=== PATIENT | female | born 1980 | race Caucasian/White ===

== ENCOUNTER 2016-06-16 07:18 | Emergency (ER) | payer OTHER ==
[~2016-06-16] VITALS: Ht 162.6 cm; Wt 77.1 kg
[~2016-06-16 07:18] MED LIST: ACHD5005; ASCO500C14 PO; CEFD300C3 PO; CITA20TA4 PO; CTLP20T PO; CYANOCOBALAMIN; DCS100C PO; ESCT10T; FOLIC ACID; IBP800T PO; LEVO88TA26 PO; ORTHOTRICYCLINE; OXYC-272 PO; OXYC1TAB12 PO; PREN1TAB39 PO; PROP1TAB77; SERT50TA; VITAMIN E; [UNRECOGNIZED DRUG - OTHER] PO; percocet
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
[2016-06-16 08:48] VITALS: BP 105/64
== END 2016-06-16 08:48 | disposition home or self-care (01) ==
LOC: EDUNIT# 07:18 → ER 07:19
DX: S19.9XXA Unspecified injury of neck, initial encounter (principal); V43.52XA Car driver injured in collision with other type car in traffic accident, initial encounter; Y92.414 Local residential or business street as the place of occurrence of the external cause; Y99.8 Other external cause status
CPT/HCPCS: 70450; 72125; 99283

== ENCOUNTER → 2016-11-26 | Outpatient (CLI) | payer OTHER ==
[2016-11-26 12:31] LABS: BASOPHILS % (AUTO) 1 % (0-10); EOSINOPHILS # (AUTO) 0.1 10^3/uL (0.0-0.3); EOSINOPHILS % (AUTO) 2 % (0-10); LYMPHOCYTES # (AUTO) 2.5 X 10^3 (1.0-4.0); LYMPHOCYTES % (AUTO) 36 % (12-44); MEAN CORPUSCULAR HEMOGLOBIN 33 PG (25-34); MEAN CORPUSCULAR HGB CONC 34 G/DL (32-36); MEAN CORPUSCULAR VOLUME 96 FL (80-99); MEAN PLATELET VOLUME 10.4 FL (7.4-10.4); MONOCYTES # (AUTO) 0.5 X 10^3 (0.0-1.0); MONOCYTES % (AUTO) 7 % (0-12); NEUTROPHILS # (AUTO) 3.7 X 10^3 (1.8-7.8); NEUTROPHILS % (AUTO) 54 % (42-75); PLATELET COUNT 224 10^3/uL (130-400); RED BLOOD COUNT 4.99 10^6/uL (4.35-5.85); RED CELL DISTRIBUTION WIDTH 13.2 % (10.0-14.5); WHITE BLOOD COUNT 6.8 10^3/uL (4.3-11.0)
[2016-11-26 12:44] LABS: ALANINE AMINOTRANSFERASE 15 U/L (0-55); ALBUMIN 3.8 GM/DL (3.2-4.5); ANION GAP 7 MMOL/L (5-14); ASPARTATE AMINO TRANSFERASE 17 U/L (5-34); BILIRUBIN,TOTAL 0.5 MG/DL (0.1-1.0); BLOOD UREA NITROGEN 10 MG/DL (7-18); BUN/CREATININE RATIO 13; CALCIUM 8.6 MG/DL (8.5-10.1); CARBON DIOXIDE 25 MMOL/L (21-32); CHLORIDE 104 MMOL/L (98-107); CHOLESTEROL 264 MG/DL (< 200); CREATININE SERUM 0.75 MG/DL (0.60-1.30); DIRECT LDL 193 MG/DL (1-129); GFR ESTIMATED > 60; GLUCOSE 101 MG/DL (70-105); POTASSIUM 4.1 MMOL/L (3.6-5.0); SODIUM 136 MMOL/L (135-145); TOTAL PROTEIN 6.2 GM/DL (6.4-8.2); TRIGLYCERIDES 211 MG/DL (<150); VLDL CHOLESTEROL 42 MG/DL (5-40)
[2016-11-26 13:04] LABS: THYROID STIMULATING HORMONE 1.63 UIU/ML (0.35-4.94)
== END ==
LOC: LAB 12:21
PROVIDERS: ATTEND Family Medicine
DX: E03.9 Hypothyroidism, unspecified (principal); E78.5 Hyperlipidemia, unspecified
CPT/HCPCS: 36415; 80053; 80061; 84439; 84443; 85025

== ENCOUNTER 2017-03-03 11:13 | Outpatient (CLI) | payer OTHER | END 2017-03-03 12:00 | disposition home or self-care (01) | LOC: SLEEP 11:13 | PROVIDERS: ATTEND Family Medicine | DX: G47.33 Obstructive sleep apnea (adult) (pediatric) (principal) ==

== ENCOUNTER → 2017-07-17 | Outpatient (CLI) | payer OTHER ==
[~2017-07-17] MED LIST changes: +PHEN30CA2
[2017-07-17 08:12] LABS: ALANINE AMINOTRANSFERASE 16 U/L (0-55); ALBUMIN 3.9 GM/DL (3.2-4.5); ALKALINE PHOSPHATASE 46 U/L (40-136); BILIRUBIN,TOTAL 0.2 MG/DL (0.1-1.0); BUN/CREATININE RATIO 15; CARBON DIOXIDE 26 MMOL/L (21-32); CHLORIDE 106 MMOL/L (98-107); CHOLESTEROL 127 MG/DL (< 200); CREATININE SERUM 0.75 MG/DL (0.60-1.30); GFR ESTIMATED > 60; GLUCOSE 102 MG/DL (70-105); HDL CHOLESTEROL 41 MG/DL (40-60); POTASSIUM 4.2 MMOL/L (3.6-5.0); SODIUM 140 MMOL/L (135-145); TOTAL PROTEIN 6.2 GM/DL (6.4-8.2); TRIGLYCERIDES 89 MG/DL (<150); VLDL CHOLESTEROL 18 MG/DL (5-40)
== END ==
LOC: LAB 07:36
PROVIDERS: ATTEND Family Medicine
DX: E78.5 Hyperlipidemia, unspecified (principal)
CPT/HCPCS: 36415; 80053; 80061

== ENCOUNTER → 2017-07-30 | Outpatient (CLI) | payer OTHER ==
[2017-07-30 09:31] LABS: FREE T4 (FREE THYROXINE) 0.95 NG/DL (0.70-1.48)
== END ==
LOC: LAB 08:33
PROVIDERS: ATTEND Family Medicine
DX: E03.9 Hypothyroidism, unspecified (principal); R53.83 Other fatigue; R10.13 Epigastric pain; E88.81 Metabolic syndrome and other insulin resistance
CPT/HCPCS: 36415; 82150; 83036; 83525; 83690; 84439; 84443

== ENCOUNTER 2017-09-17 23:53 | Emergency (ER) | payer OTHER ==
[~2017-09-17] VITALS: Ht 167.6 cm; Wt 79.8 kg
[~2017-09-17 23:53] MED LIST changes: -PHEN30CA2
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
[2017-09-18] MEDS ORDERED: PHEN30CA2 (00:20)
[2017-09-18] MEDS ORDERED: IBUPROFEN TABLET 200 MG TAB PO ONE (00:45)
--- NOTE | 2017-09-18 01:15 | ED Lower Extremity ---
General Chief Complaint: Lower Extremity Stated Complaint: FALL-LEFT ANKLE INJURY Nursing Triage Note: pt presents to er with complaint of left ankle pain. states she tripped on her back steps at home. Nursing Sepsis Screen: No Definite Risk (NURY AZUL MD) History of Present Illness Date Seen by Provider: Sep 18, 2017 Time Seen by Provider: 00:31 Initial Comments This is a 37 y/o female presenting to the ED via private vehicle with chief complaint of L ankle injury that occurred at 2330 on 09/17/17. Patient states she was walking down some stairs when her foot got caught on a purse handle which caused her to fall and twist her ankle. She states she heard a crack and had immediate pain in the L ankle. She is uncertain which way her ankle turned when she fell. Patient states she was unable to bear weight on her ankle and used crutches to walk. She denies hitting her head, denies pain elsewhere. (KATHLEEN MOSQUEDA) Allergies and Home Medications Allergies Coded Allergies: No Known Allergies (Verified Allergy, Unknown, 07/25/14) erythromycin base (Unverified Allergy, Unknown, 07/25/14) Home Medications Citalopram Hydrobromide 20 Mg Tab, 30 MG PO DAILY, (Reported) Levothyroxine Sodium 88 Mcg Tablet, 88 MCG PO DAILY, (Reported) Patient Home Medication List Home Medication List Reviewed: Yes (KAHTLEEN MOSQUEDA) Constitutional: no symptoms reported Respiratory: no symptoms reported Cardiovascular: no symptoms reported Gastrointestinal: no symptoms reported Musculoskeletal: see HPI, other (L ankle pain and swelling ) (KATHLEEN MOSQUEDA) Past Zcqhkpx-Razoxk-Tesnbn Hx Patient Social History Alcohol Use: Occasionally Uses Recreational Drug Use: No Smoking Status: Current Everyday Smoker Recent Foreign Travel: No Contact w/Someone Who Travel: No Recent Infectious Disease Expo: No Recent Hopitalizations: Yes (NURY AZUL MD) Immunizations Up To Date Date of Influenza Vaccine: Jan 04, 2013 (NURY AZUL MD) Past Medical History Surgeries: Yes (r KNEE SCOPE, D&C, DERMOID TUMOR, POSTERIOR VAGINAL REPAIR AND RECONST) Gallbladder, Hysterectomy, Orthopedic Respiratory: No Cardiac: No Neurological: No Reproductive Disorders: No Female Reproductive Disorders: Denies Sexually Transmitted Disease: No HIV/AIDS: No Gastrointestinal: No Musculoskeletal: No Endocrine: Yes Hypothyroidsim Loss of Vision: Denies Hearing Impairment: Denies Cancer: No Psychosocial: No Integumentary: No Blood Disorders: No Adverse Reaction/Blood Tranf: No (NURY AZUL MD) Family Medical History Diabetes mellitus 19 MOTHER FH: Crohn's disease 19 FATHER Physical Exam Vital Signs Vital Signs - First Documented 09/18/17 00:15 Pulse 95 Resp 20 B/P (MAP) 110/68 (82) Pulse Ox 98 O2 Delivery Room Air (KATHLEEN MOSQUEDA MED STUDENT) Vital Signs Capillary Refill : Less Than 3 Seconds (NURY AZUL MD) General Appearance: WD/WN, no apparent distress Cardiovascular: normal peripheral pulses, regular rate, rhythm, no edema, no gallop, no JVD, no murmur Respiratory: chest non-tender, lungs clear, normal breath sounds, no respiratory distress, no accessory muscle use Hips: bilateral hip non-tender, bilateral hip normal inspection, bilateral hip normal range of motion, bilateral hip no evidence of injury Legs: bilateral leg non-tender, bilateral leg normal inspection, bilateral leg normal range of motion, bilateral leg no evidence of injury Knees: bilateral knee non-tender, bilateral knee normal inspection, bilateral knee normal range of motion, bilateral knee no evidence of injury Ankles: right ankle non-tender, right ankle normal inspection, right ankle normal range of motion, right ankle no evidence of injury; left ankle ecchymosis , left ankle limited range of motion (limited eversion and inversion due to swelling and pain ), left ankle pain (pain in the ankle with palpation of the medial and lateral malleoli ), left ankle soft tissue tenderness (pain in the ankle with palpation of the medial and lateral malleoli, denies pain over dorasal and plantar portions of the foot), left ankle swelling (pain in the ankle with palpation of the medial and lateral malleoli ) Feet: left foot non-tender; right foot normal inspection; left foot normal range of motion, left foot no evidence of injury, left foot ecchymosis (mild ecchymosis noted on the dorsum of the L foot ) Neurologic/Tendon: normal sensation, normal motor functions, normal tendon functions, responds to pain 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, no motor/sensory deficits, alert, normal mood/affect, oriented x 3 Skin: ecchymosis (large ecchymosis noted on the lateral and medial malleolus of the L ankle, small ecchymosis noted on the dorsal side of the L foot) ( KATHLEEN MOSQUEDA STUDENT) Progress/Results/Core Measures Results/Orders Medications Given in ED Current Medications Medications Dose Ordered Sig/Aletha Route Start Time Stop Time Status Last Admin Dose Admin Ibuprofen 600 mg ONCE ONCE PO 09/18/17 00:45 09/18/17 00:46 DC 09/18/17 00:47 600 MG (KATHLEEN MOSQUEDA) Vital Signs/I&O 09/18/17 09/18/17 00:15 01:20 Pulse 95 95 Resp 20 20 B/P (MAP) 110/68 (82) 110/68 (82) Pulse Ox 98 98 O2 Delivery Room Air (KATHLEEN MOSQUEDA) Blood Pressure Mean: 82 Progress Progress Note : Progress Note I personally interviewed, seen, and examined this patient along with MARIUSZ Domingo student. I agree with her history, exam, assessment, and plan with the following additions. Exam: Gen.: Alert, oriented, no acute distress HEENT: Normocephalic and atraumatic Extremities: Left ankle demonstrates significant edema and tenderness over the lateral malleolus. There is bruising of the area extending anterior and onto the proximal dorsal aspect of the foot. There is no point tenderness anywhere on the foot. Tenderness is isolated to the ankle. Distal sensation and capillary refill is intact. Neuro: Alert, oriented, sensation intact Skin: Ecchymosis as above X-rays were reviewed. No acute bony injuries or dislocations were identified. Ankle was wrapped in William wrap and patient was fitted with crutches. Radiologist's report was reviewed when available after patient discharge. There was some questionable widening of the ankle mortise suggestive of a more severe ligamentous injury. Patient was contacted by phone and advised to follow -up with an orthopedic provider. (NURY AZUL MD) Progress Note : Time: 10:13 Progress Note Patients x-rays are unremarkable for any acute fractures, probable sprain. Left ankle was wrapped with WILLIAM bandages, this improved patients pain. (KATHLEEN MOSQUEDA STUDENT) Diagnostic Imaging Diagonstic Imaging: Xray Plain Films/CT/US/NM/MRI: ankle Comments X rays reviewed by me: unremarkable for acute fractures or abnormalities. (KATHLEEN MOSQUEDA STUDENT) Departure Impression Primary Impression: Left ankle sprain Qualified Codes: S93.402A - Sprain of unspecified ligament of left ankle, initial encounter Disposition: HOME, SELF-CARE Condition: Improved Departure-Patient Inst. Decision time for Depature: 01:14 (NURY AZUL MD) Referrals: ENMA CHANDLER DO (PCP/Family) Primary Care Physician Patient Instructions: Ankle Sprain (DC) Add. Discharge Instructions: Rest, elevation, compressive wrapping, and icing in 20 minute intervals should help with pain and swelling. Use crutches as needed. Gradually increase level of activity as pain allows. Use a supportive lace up or Velcro brace whenever active for the next 6 weeks to avoid reinjury. Return to care if you're not improving as expected or if symptoms worsen. All discharge instructions reviewed with patient and/or family. Voiced understanding. NURY AZUL MD Sep 18, 2017 01:15 KATHLEEN MOSQUEDA Sep 18, 2017 04:10
[2017-09-18 01:20] VITALS: BP 110/68
--- NOTE | 2017-09-18 06:52 | Diagnostic Imaging Report ---
PATIENT HISTORY: Left ankle pain and swelling. TECHNIQUE: 3 views of the left ankle COMPARISON: None FINDINGS: No acute fracture or dislocation is seen in the left ankle. There is mild asymmetry at the ankle mortise with questionable widening laterally. Moderate lateral soft tissue edema is seen in the left ankle. No large ankle joint effusion is seen. IMPRESSION: No acute fracture seen in the left ankle. There is questionable widening of the ankle mortise, which could be due to ligamentous injury. Please correlate with clinical findings. Dictated by: Dictated on workstation # [id number]
== END 2017-09-18 01:21 | disposition home or self-care (01) ==
LOC: EDUNIT# 23:53 → ER 23:56
DX: S93.402A Sprain of unspecified ligament of left ankle, initial encounter (principal); E03.9 Hypothyroidism, unspecified; F17.200 Nicotine dependence, unspecified, uncomplicated; Z90.49 Acquired absence of other specified parts of digestive tract; Z90.710 Acquired absence of both cervix and uterus; Z88.1 Allergy status to other antibiotic agents; W10.9XXA Fall (on) (from) unspecified stairs and steps, initial encounter; Y92.009 Unspecified place in unspecified non-institutional (private) residence as the place of occurrence of the external cause
CPT/HCPCS: 73610

== ENCOUNTER → 2020-01-31 | Outpatient (CLI) | payer OTHER ==
[~2020-01-31] MED LIST changes: +PHEN30CA2
[2020-01-31 11:27] LABS: BASOPHILS # (AUTO) 0.1 10^3/uL (0.0-0.1); BASOPHILS % (AUTO) 1 % (0-10); EOSINOPHILS # (AUTO) 0.1 10^3/uL (0.0-0.3); EOSINOPHILS % (AUTO) 1 % (0-10); HEMATOCRIT 42 % (35-52); HEMOGLOBIN 14.1 g/dL (11.5-16.0); LYMPHOCYTES # (AUTO) 1.6 10^3/uL (1.0-4.0); LYMPHOCYTES % (AUTO) 16 % (12-44); MEAN CORPUSCULAR HEMOGLOBIN 32 pg (25-34); MEAN CORPUSCULAR HGB CONC 34 g/dL (32-36); MEAN CORPUSCULAR VOLUME 95 fL (80-99); MEAN PLATELET VOLUME 9.4 fL (9.0-12.2); MONOCYTES # (AUTO) 0.4 10^3/uL (0.0-1.0); MONOCYTES % (AUTO) 4 % (0-12); NEUTROPHILS # (AUTO) 7.9 10^3/uL (1.8-7.8); NEUTROPHILS % (AUTO) 79 % (42-75); PLATELET COUNT 300 10^3/uL (130-400); WHITE BLOOD COUNT 10.1 10^3/uL (4.3-11.0)
[2020-01-31 11:36] LABS: ERYTHROCYTE SEDIMENTATION RATE 1 MM/HR (0-20)
[2020-01-31 11:47] LABS: ALANINE AMINOTRANSFERASE 12 U/L (0-55); ALBUMIN 4.2 GM/DL (3.2-4.5); ALKALINE PHOSPHATASE 47 U/L (40-136); BILIRUBIN,TOTAL 0.3 MG/DL (0.1-1.0); BUN/CREATININE RATIO 12; CALCIUM 8.7 MG/DL (8.5-10.1); CARBON DIOXIDE 27 MMOL/L (21-32); CHLORIDE 104 MMOL/L (98-107); CREATININE SERUM 0.83 MG/DL (0.60-1.30); GFR ESTIMATED > 60; GLUCOSE 112 MG/DL (70-105); POTASSIUM 3.9 MMOL/L (3.6-5.0); SODIUM 140 MMOL/L (135-145); TOTAL PROTEIN 6.9 GM/DL (6.4-8.2); URIC ACID 4.9 MG/DL (2.6-7.2)
[2020-01-31 12:07] LABS: FREE T4 (FREE THYROXINE) 1.11 NG/DL (0.70-1.48)
== END ==
LOC: LAB 10:14
PROVIDERS: ATTEND Family Medicine
DX: E05.90 Thyrotoxicosis, unspecified without thyrotoxic crisis or storm (principal); R53.83 Other fatigue; R00.2 Palpitations; E55.9 Vitamin D deficiency, unspecified
CPT/HCPCS: 36415; 80053; 82306; 82728; 83540; 84439; 84443; 84550; 85025; 85652; 86038; 86060; 86431

== ENCOUNTER → 2022-10-01 | Outpatient (CLI) | payer OTHER ==
[~2022-10-01] MED LIST changes: +ALPR0.254 PO; +AMPH20TA2 PO; +BUPR1TAB45 SL; +ESCI20TA39 PO; +PANT40SU PO; -PHEN30CA2; +PHEN30CA21
== END ==
LOC: ORTHO 08:54
PROVIDERS: ATTEND Orthopaedic Surgery
DX: G56.03 Carpal tunnel syndrome, bilateral upper limbs (principal)
CPT/HCPCS: 99203

== ENCOUNTER 2022-10-02 05:31 | Outpatient (CLI) | payer OTHER ==
[~2022-10-02] VITALS: Ht 162.6 cm; Wt 69.0 kg
[~2022-10-02 05:31] MED LIST changes: -ALPR0.254 PO; -AMPH20TA2 PO; -BUPR1TAB45 SL; -ESCI20TA39 PO; -PANT40SU PO
[2022-10-02] MEDS ORDERED: BUPR1TAB45 SL (10:38)
[2022-10-02] MEDS ORDERED: ALPR0.254 PO (10:38)
[2022-10-02] MEDS ORDERED: AMPH20TA2 PO (10:38)
[2022-10-02] MEDS ORDERED: ESCI20TA39 PO (10:38)
[2022-10-02] MEDS ORDERED: PANT40SU PO (10:38)
== END 2022-10-02 11:06 | disposition home or self-care (01) ==
LOC: PREOP 05:31
PROVIDERS: ATTEND Orthopaedic Surgery
DX: Z01.818 Encounter for other preprocedural examination (principal); G56.01 Carpal tunnel syndrome, right upper limb

== ENCOUNTER 2022-10-09 07:41 | Day surgery (SDC) | payer OTHER ==
[2022-10-09] VITALS (8 sets, daily range): BP systolic 96–122; BP diastolic 53–68
[~2022-10-09 07:41] MED LIST changes: +ALPR0.254 PO; +AMPH20TA2 PO; +BUPR1TAB45 SL; +ESCI20TA39 PO; +PANT40SU PO
[2022-10-09] MEDS ORDERED: ceFAZolin INJECTION 2,000 MG in NS (IVPB) 50 ML IV ONE (08:00)
[2022-10-09] MEDS ORDERED: LACTATED RINGERS 1,000 ML IV PRN (08:00)
--- NOTE | 2022-10-09 09:21 | Progress Note-Pre Operative ---
Pre-Operative Progress Note Date of Available H&P: Oct 01, 2022 Date H&P Reviewed: Oct 09, 2022 Time H&P Reviewed: 09:15 History & Physical: H&P Reviewed, Patient Examed, No changes noted Pre-Operative Diagnosis: Right Carpal Tunnel Syndrome PIYUSH DUPONT MD Oct 09, 2022 09:21
[2022-10-09] MEDS ORDERED: NEO/POLY/BAC (NEOSPORIN) OINT 15 GM TUBE ONE (09:26)
[2022-10-09] MEDS ORDERED: BUPIVACAINE 0.5% 30 ML (SENSORCAINE) VIAL ONE (09:26)
[2022-10-09] MEDS ORDERED: LIDOCAINE/EPI 1%-1:100,000 (XYLOCAINE) 20ML ONE (09:28)
[2022-10-09] MEDS ORDERED: PROPOFOL INJECTION 50 ML IV ONE (09:30)
[2022-10-09] MEDS ORDERED: MIDAZOLAM 2 MG/2 ML (VERSED) VIAL ONE (09:30)
[2022-10-09] MEDS ORDERED: LIDOCAINE 1% INJ 20 ML VIAL ONE (09:31)
[2022-10-09] MEDS ORDERED: KETAMINE 50 MG/5 ML SYRINGE ONE (09:34)
[2022-10-09] MEDS ORDERED: LIDOCAINE PF 2% 5 ML (XYLOCAINE) VIAL ONE (09:55)
[2022-10-09] MEDS ORDERED: NEO/POLY/BAC (NEOSPORIN) OINT 15 GM TUBE TOP ONE (10:08)
[2022-10-09] MEDS ORDERED: LIDOCAINE/EPI 1%-1:100,000 (XYLOCAINE) 20ML INJ ONE (10:10)
[2022-10-09] MEDS ORDERED: LIDOCAINE 1% INJ 20 ML VIAL INJ ONE (10:10)
[2022-10-09] MEDS ORDERED: BUPIVACAINE 0.5% 30 ML (SENSORCAINE) VIAL INJ ONE (10:11)
--- NOTE | 2022-10-09 10:29 | Operative Report - Ortho ---
Operative Report Surgeon (s)/Radio Electrician (s) Surgeon PIYUSH DUPONT MD Radio Electrician n/a Pre-Operative Diagnosis Right Carpal Tunnel Syndrome Post-Operative Diagnosis same Operative Report Date of Procedure: Oct 09, 2022 Name of Procedure Performed: Right Carpal Tunnel Release Description & Findings After obtaining informed consent and marking the patient in the preoperative holding area, the patient was administered IV antibiotics. The patient was taken to the operating room and sedation was induced. Local anesthetic was placed. The right upper extremity was prepped and draped in the usual sterile fashion. Surgical timeout was taken. Incision was made just ulnar to the thenar crease. Blunt dissection was carried down to the longitudinal fibers of the palmar fascia; these were divided in line revealing the transverse carpal ligament. Beginning distally and working proximally, carpal tunnel release was performed. Nerve protector was placed and release was completed back to the level of the forearm fascia. Probe was inserted and release was palpably complete. Tourniquet was dropped and hemostasis was achieved. Wound was closed with 4-0 nylon. Wound was dressed with antibiotic ointment, xeroform, 4x4s, italia, ABD for soft splint, cast padding, and JOSEF wrap. Patient tolerated the procedure well and was stable to the recovery room. Anesthesia Type MAC plus Local Estimated Blood Loss minimal Specimen(s) collected/removed none PIYUSH DUPONT MD Oct 09, 2022 10:29
[2022-10-09] MEDS ORDERED: ONDANSETRON 4 MG/2 ML (SDV) Z0FRAN IVP PRN (10:30)
[2022-10-09] MEDS ORDERED: KETOROLAC 30 MG/ML VIAL IVP ONE (10:30)
[2022-10-09] MEDS ORDERED: OXC5T PO (10:34)
--- NOTE | 2022-10-09 14:22 | Anesthesia-General Post-Op ---
MAC Patient Condition Mental Status/LOC: Same as Preop Cardiovascular: Satisfactory Nausea/Vomiting: Absent Respiratory: Satisfactory Pain: Controlled Complications: Absent Post Op Complications Complications None Follow Up Care/Instructions Patient Instructions None needed. Anesthesiology Discharge Order Discharge Order Patient is doing well, no complaints, stable vital signs, no apparent adverse anesthesia problems. No complications reported per nursing. LOU NICE CRNA Oct 09, 2022 14:22
== END 2022-10-09 11:35 | disposition home or self-care (01) ==
LOC: SDC 07:41
PROVIDERS: ATTEND Orthopaedic Surgery
DX: G56.03 Carpal tunnel syndrome, bilateral upper limbs (principal); F17.210 Nicotine dependence, cigarettes, uncomplicated
CPT/HCPCS: 87081

== ENCOUNTER → 2022-10-22 | Outpatient (CLI) | payer OTHER ==
[~2022-10-22] MED LIST changes: +OXC5T PO
== END ==
LOC: ORTHO 10:43
PROVIDERS: ATTEND Orthopaedic Surgery
DX: Z98.890 Other specified postprocedural states (principal)

== ENCOUNTER 2022-10-30 08:19 | Day surgery (SDC) | payer OTHER ==
[~2022-10-30] VITALS: Ht 162 cm; Wt 69.0 kg
[2022-10-30] MEDS ORDERED: LACTATED RINGERS 1,000 ML IV PRN (08:30)
[2022-10-30] MEDS ORDERED: ceFAZolin INJECTION 2,000 MG in NS (IVPB) 50 ML 50 ML IV ONE (08:30)
[2022-10-30] MEDS ORDERED: fentaNYL INJ 100 MCG/2 ML AMP ONE (08:54)
[2022-10-30] MEDS ORDERED: PROPOFOL INJECTION 50 ML IV ONE (08:54)
[2022-10-30] MEDS ORDERED: MIDAZOLAM 2 MG/2 ML (VERSED) VIAL ONE (08:55)
[2022-10-30 09:00] VITALS: BP 119/78
[2022-10-30] MEDS ORDERED: LIDOCAINE 1% INJ 20 ML VIAL ONE (09:45)
[2022-10-30] MEDS ORDERED: LIDOCAINE/EPI 1%-1:100,000 (XYLOCAINE) 20ML ONE (09:45)
[2022-10-30] MEDS ORDERED: BUPIVACAINE 0.5% 30 ML VIAL ONE (09:45)
[2022-10-30] MEDS ORDERED: NEO/POLY/BAC (NEOSPORIN) OINT 15 GM TUBE ONE (09:48)
[2022-10-30] MEDS ORDERED: KETOROLAC 30 MG/ML VIAL ONE (10:38)
[2022-10-30 10:42] VITALS: BP 102/66
--- NOTE | 2022-10-30 10:42 | Operative Report - Ortho ---
Operative Report Surgeon (s)/Supervisor Sanding (s) Surgeon PIYUSH DUPONT MD Supervisor Sanding n/a Pre-Operative Diagnosis LEFT CARPAL TUNNEL SYNDROME Post-Operative Diagnosis same Operative Report Date of Procedure: Oct 30, 2022 Name of Procedure Performed: Left Carpal Tunnel Release Description & Findings After obtaining informed consent and marking the patient in the preoperative holding area, the patient was administered IV antibiotics. The patient was t aken to the operating room and sedation was induced. Local anesthetic was placed. The left upper extremity was prepped and draped in the usual sterile fashion. Surgical timeout was taken. Incision was made just ulnar to the thenar crease. Blunt dissection was carried down to the longitudinal fibers of the palmar fascia; these were divided in line revealing the transverse carpal ligament. Beginning distally and working proximally, carpal tunnel release was performed. Nerve protector was placed and release was completed back to the level of the forearm fascia. Probe was inserted and release was palpably complete. Tourniquet was dropped and hemostasis was achieved. Wound was closed with 4-0 nylon. Wound was dressed with antibiotic ointment, xeroform, 4x4s, italia, ABD for soft splint, cast padding, and JOSEF wrap. Patient tolerated the procedure well and was stable to the recovery room. Anesthesia Type MAC plus Local Estimated Blood Loss minimal Specimen(s) collected/removed None PIYUSH DUPONT MD Oct 30, 2022 10:42
[2022-10-30 10:50] VITALS: BP 100/67
[2022-10-30 10:55] VITALS: BP_SYST 100; BP_SYST 101; BP_DIAS 60; BP_DIAS 67
[2022-10-30] MEDS ORDERED: LIDOCAINE 1% INJ 20 ML VIAL INJ ONE (11:22)
[2022-10-30] MEDS ORDERED: LIDOCAINE/EPI 1%-1:100,000 (XYLOCAINE) 20ML INJ ONE (11:23)
[2022-10-30 11:25] VITALS: BP 100/65
[2022-10-30 11:28] VITALS: BP 100/65
--- NOTE | 2022-10-30 12:00 | Anesthesia-General Post-Op ---
MAC Patient Condition Mental Status/LOC: Same as Preop Cardiovascular: Satisfactory Nausea/Vomiting: Absent Respiratory: Satisfactory Pain: Controlled Complications: Absent Post Op Complications Complications None Follow Up Care/Instructions Patient Instructions None needed. Anesthesiology Discharge Order Discharge Order Patient is doing well, no complaints, stable vital signs, no apparent adverse anesthesia problems. No complications reported per nursing. LUIS MANUEL CHEW CRNA Oct 30, 2022 12:00
[2022-10-30] MEDS ORDERED: OXC5T PO (12:20)
== END 2022-10-30 11:28 | disposition home or self-care (01) ==
LOC: SDC 08:19
PROVIDERS: ATTEND Orthopaedic Surgery
DX: G56.02 Carpal tunnel syndrome, left upper limb (principal); F17.210 Nicotine dependence, cigarettes, uncomplicated; F17.290 Nicotine dependence, other tobacco product, uncomplicated
CPT/HCPCS: 87081

== ENCOUNTER → 2023-03-10 | Outpatient (CLI) | payer OTHER ==
--- NOTE | 2023-03-10 13:15 | Diagnostic Imaging Report ---
INDICATION: Right knee pain AP and lateral views of the right knee are obtained. No fracture or acute bony abnormality is seen. There is no significant joint space narrowing. There is a small knee joint effusion in the suprapatellar recess. IMPRESSION: Small knee joint effusion. No acute fracture or significant degenerative change. Dictated by: Dictated on workstation # [id number]
== END ==
LOC: ORTHO 09:00
PROVIDERS: ATTEND Orthopaedic Surgery
DX: M25.461 Effusion, right knee (principal)
CPT/HCPCS: 73562; G0463; 99213